=== PATIENT | female | born 1960 | race Two or more races ===

== ENCOUNTER 2019-12-09 09:45 | Inpatient (IN) | payer OTHER ==
[~2019-12-09] VITALS: Ht 160 cm; Wt 65.3 kg
[2019-12-12] MEDS ORDERED: FAMOTIDINE40 MG PO (08:46)
[2019-12-12] MEDS ORDERED: HYOSCYAMINE0.125 M1 SL (08:46)
[2019-12-12] MEDS ORDERED: RANITIDINE HCL300 MG PO (08:47)
[2019-12-12] MEDS ORDERED: PANTOPRAZOLE SO40 MG PO (08:47)
== END 2019-12-13 15:40 | disposition home or self-care (01) | DRG 735 ==
LOC: EDSTATUS 10:00 → O/R 12-12 06:00 → SURH 12-12 06:00
PROVIDERS: ADMIT Obstetrics & Gynecology Gynecologic Oncology
PROC: 0UT94ZZ Resection of Uterus, Percutaneous Endoscopic Approach (ICD-10-PCS; 2019-12-12)
PROC: 0UT74ZZ Resection of Bilateral Fallopian Tubes, Percutaneous Endoscopic Approach (ICD-10-PCS; 2019-12-12)
PROC: 0DBW4ZZ Excision of Peritoneum, Percutaneous Endoscopic Approach (ICD-10-PCS; 2019-12-12)
PROC: 0UT24ZZ Resection of Bilateral Ovaries, Percutaneous Endoscopic Approach (ICD-10-PCS; 2019-12-12)
PROC: 0DTU4ZZ Resection of Omentum, Percutaneous Endoscopic Approach (ICD-10-PCS; 2019-12-12)
PROC: 3E1M38Z Irrigation of Peritoneal Cavity using Irrigating Substance, Percutaneous Approach (ICD-10-PCS; 2019-12-12)
PROC: 07TC4ZZ Resection of Pelvis Lymphatic, Percutaneous Endoscopic Approach (ICD-10-PCS; principal; 2019-12-12 07:15)
DX: C56.1 Malignant neoplasm of right ovary (principal); C56.2 Malignant neoplasm of left ovary; N80.0 Endometriosis of uterus; N72 Inflammatory disease of cervix uteri

== ENCOUNTER 2023-08-31 07:05 | Day surgery (SDC) | payer OTHER ==
[~2023-08-31] VITALS: Ht 157.5 cm; Wt 70.8 kg
[~2023-08-31 07:05] MED LIST: FAMOTIDINE40 MG PO; HYOSCYAMINE0.125 M1 SL; PANTOPRAZOLE SO40 MG PO; RANITIDINE HCL300 MG PO
[2023-08-31] MEDS ORDERED: IBANDRONATE SO150 MG (09:38)
== END 2023-08-31 16:30 | disposition home or self-care (01) ==
LOC: O/R 07:05 → CIR.AMB 07:05 → OB/GYN 07:05 → EDSTATUS 08:15 → OB/GYN 13:00 → O/R 16:30 → CIR.AMB 16:30 → OB/GYN 09-08 08:15
PROVIDERS: ATTEND Obstetrics & Gynecology Gynecologic Oncology
DX: C56.9 Malignant neoplasm of unspecified ovary (principal); C79.89 Secondary malignant neoplasm of other specified sites; C57.7 Malignant neoplasm of other specified female genital organs